=== PATIENT | male | born 1955 | race Caucasian/White ===

== ENCOUNTER 2024-01-02 04:12 | Inpatient (IN) | payer MEDICARE, OTHER, SELFPAY ==
[2024-01-01 22:33] VITALS: BP 119/69
[2024-01-01 22:48] LABS: Hematocrit 43.9 % (39.0-52.0); Mean Corp Hgb Conc. 36.4 g/dL (33.0-37.0); Mean Corpuscular Hgb 29.7 pg (27.0-31.0); Mean Corpuscular Volume 81.6 fL (80.0-94.0); Mean Platelet Volume 10.1 fL (7.4-10.4); Platelet Count 104 10^3/uL (130-400); Red Blood Cell Count 5.38 10^6/uL (4.70-6.10); White Blood Cell Count 17.3 10^3/uL (4.8-10.8)
[2024-01-01 23:03] LABS: ALT (SGPT) 26 U/L (0-50); AST (SGOT) 31 U/L (17-59); Albumin 3.6 g/dl (3.5-5.0); Alkaline Phosphatase 142 U/L (38-126); Blood Urea Nitrogen 69 mg/dl (9-20); Calcium 8.7 mg/dl (8.4-10.2); Carbon Dioxide 20 mmol/L (22-30); Chloride 101 mmol/L (98-107); Glucose 101 mg/dl (70-99); Lipase 40 U/L (23-300); Potassium 3.9 mmol/L (3.5-5.1); Sodium 130 mmol/L (135-145); Total Bilirubin 1.6 mg/dl (0.2-1.3); Total Protein 6.4 g/dl (6.3-8.2); eGFR 23.83
[2024-01-01 23:05] LABS: Absolute Neutrophils -Man Diff 16.9 10^3/uL (1.4-6.5); Band Neutrophils 15 % (0-3); Lymphocytes 1 % (20-51); Monocytes 1 % (2-9); Segmented Neutrophils 83 % (42-75)
[2024-01-01 23:06] LABS: Normal RBC Morphology Yes; Platelets Checked Yes; Total Cells Counted 100
[2024-01-01 23:20] VITALS: BP 109/69
--- NOTE | 2024-01-01 23:52 | ED.GENMED ---
History of Present Illness
<BHASKAR Myles - Last Filed: 01/02/24 01:00>
General
Chief Complaint: Abdominal Pain
Source: patient
Time Seen by Provider: 01/01/24 23:51
Travel History
Have you had any contact with someone who has COVID-19?: No
Do you have any symptoms of coronavirus? Fever > 100 degrees, chills, cough, shortness of breath, sore throat, loss of taste or smell, muscle aches, or headache?: No
History of Present Illness
History of Present Illness:
Pt is a 68 year old male presenting with diffuse abdominal pain. He states the pain started as localized left sided flank pain Saturday morning which he reports felt similar to previous kidney stones he has had. However, later Saturday he developed
diarrhea, nausea, 'shakes', and one episode of emesis. He states he diarrhea has continued, reporting 2-3 loose stools/day, and continued nausea and dry heaving. He states after he took Imodium this evening his diarrhea has not returned. He reports
he has been taking Motrin two 200 mg tablets every 6 hours since Saturday for his pain, noting his last dose was at 6 pm tonight. He reports moderate headache. He reports he has been able to keep fluids down after vomiting Saturday night. He has had no
appetite since his symptoms began, reporting a total intake of 7 crackers. Pt notes he ate 'a lot of junk' Saturday when he drove down to [place] with his son. He reports a PMHx of gallstones. He denies fever, urinary pain/burning, hematuria,
cough, SOB, sore throat, chest pain, sick contacts. He returned from [place] today due to his symptoms.
Past History
<BHASKAR Myles - Last Filed: 01/02/24 01:00>
Past History
ED Past Medical History: Other (Kidney stones)
ED Past Surgical History: Orthopedic (lower back surgery 8 years ago.) and Other (Repair of meniscus right knee )
Social History
Tobacco: Non-smoker
Alcohol: None
Drug: None
Personal:
Living: with family
Employment: Employed (due to back pain)
Family History
Family History: Other (Noncontributory)
Review of Systems
<BHASKAR yMles - Last Filed: 01/02/24 01:00>
Review of Systems
All Other Systems: Not applicable
Constitutional: Reports chills
EENT: Reports no symptoms
Respiratory: Reports no symptoms
Cardiac: Reports no symptoms
ABD/GI: Reports abdominal pain, nausea, vomiting and diarrhea
: Reports flank pain (left sided)
Musculoskeletal: Reports no symptoms
Skin: Reports no symptoms
Neurological: Reports no symptoms
Endocrine: Reports other (anorexia)
Hematologic/Lymphatic: Reports no symptoms
Psychiatric: Reports no symptoms
Phy Exam
<BHASKAR Myles - Last Filed: 01/02/24 01:00>
General Physical Exam
General Presentation: well appearing and mild distress
General age: appears stated age
General Skin: warm and dry
General Habitus: obese
General Mental: alert
General Hydration: dry mucous membranes and poor skin turgor
ENT Exam
ENT Exam: swallowing well
Eye Exam
Eye Exam: conjunctiva normal
Cardiovascular Exam
Cardiovascular Exam: regular rate/rhythm, no edema and no murmur
Pulmonary Exam
Pulmonary Exam: lungs clear, no respiratory distress, no crackles and no cough
Gastrointestinal Exam
Gastrointestinal Exam: normal bowel sounds, soft, no cva tenderness, no masses, tender and other (Positive Carlisle's sign; no CVA tenderness)
Palpation: left lower quadrant: Moderate tenderness, right upper quadrant: Moderate tenderness and generalized: Mild tenderness
Auscultation of Abdomen: normal
Neurological Exam
Neurological Exam: alert and oriented x3
Mental
Mental Status: oriented to person, oriented to place and oriented to time
Describe Speech: normal speech
Musculoskeletal Exam
Musculoskeletal Exam: no edema
Skin Exam
Skin Exam: normal color and warm/dry
Psychiatric Exam
Psychiatric Exam: normal mood/affect
Course
<Stephanie Barry [facility] - Last Filed: 01/02/24 01:00>
Orders/Labs/Results
Orders:
Orders
01/01/24 22:40
CBC/With Diff [Complete Blood Count/With Diff] Urgent
CMP [Comprehensive Metabolic Panel] Urgent
Lipase Urgent
Manual Differential Urgent
01/01/24 23:55
Urinalysis Reflex To Culture Urgent
Date Specimen was Collected: 01/01/24
Time Specimen was Collected: 23:46
Urine Microscopic Reflex Cult Urgent
Urine Culture Urgent
JEANETTE Source: U
Specimen Description:
Date Specimen was Collected: 01/01/24
Time Specimen was Collected: 23:46
01/01/24 23:56
0.9% Sodium Chloride 1000 ml [Nss] 1,000 ml IV BOLUS
01/02/24 00:31
0.9% Sodium Chloride 1000 ml [Nss] 1,000 ml IV BOLUS
01/02/24 00:34
CT Abd/pel Without Iv Or Oral Urgent
Comment:
Reason For Exam: gen upper abd pain, N/V/D x 3 days
Lactic Acid Urgent
Blood Culture Q30M
JEANETTE Source: Blood/Venous
Specimen Description:
01/02/24 00:37
Blood Culture Q30M
JEANETTE Source: Blood/Venous
Specimen Description:
01/02/24 00:48
Ondansetron Injectable [Zofran] 4 mg IV NOW STA
01/02/24 01:28
Cefepime HCl [Maxipime] 2,000 mg IV NOW STA
01/02/24 01:33
0.9% Sodium Chloride 1000 ml [Nss] 1,000 ml IV 250 mls/hr
Abnormal Lab Results
01/01/24 01/01/24
22:40 23:55
WBC 17.3 H 10^3/uL
(4.8-10.8)
Plt Count 104 L 10^3/uL
(130-400)
Abs Neuts (Manual) 16.9 H 10^3/uL
(1.4-6.5)
Segmented Neutrophils 83 H %
(42-75)
Band Neutrophils 15 H %
(0-3)
Lymphocytes (Manual) 1 L %
(20-51)
Monocytes (Manual) 1 L %
(2-9)
Sodium 130 L mmol/L
(135-145)
Carbon Dioxide 20 L mmol/L
(22-30)
BUN 69 H mg/dl
(9-20)
Creatinine 2.8 H mg/dL
(0.7-1.3)
Glucose 101 H mg/dl
(70-99)
Total Bilirubin 1.6 H mg/dl
(0.2-1.3)
Alkaline Phosphatase 142 H U/L
(38-126)
Urine Ketones Trace A
(Negative)
Ur Occult Blood Reflex 4+ A
(Negative)
Leukocyte Esterase Rfl 2+ A
(Negative)
Urine WBC (Reflex) >100 A /HPF
(0-5)
Urine Bacteria (Reflex) Many A
(Negative)
Urine Albumin (Reflex) 1+ A
(Neg - Trace)
01/01/24 22:40
01/01/24 22:40
Vital Signs
Initial and Last Documented VS:
Initial Vital Signs
Temp Pulse Resp BP Pulse Ox
98.8 F 114 18 119/69 97
01/01/24 22:33 01/01/24 22:33 01/01/24 22:33 01/01/24 22:33 01/01/24 22:33
Last Documented Vital Signs
Temp Pulse Resp BP Pulse Ox
98.9 F 98 18 109/69 96
01/01/24 23:35 01/01/24 23:30 01/01/24 23:30 01/01/24 23:20 01/01/24 23:30
<iKta Chaudhari, DO - Last Filed: 01/02/24 02:36>
Orders/Labs/Results
Orders:
Orders
01/01/24 22:40
CBC/With Diff [Complete Blood Count/With Diff] Urgent
CMP [Comprehensive Metabolic Panel] Urgent
Lipase Urgent
Manual Differential Urgent
01/01/24 23:55
Urinalysis Reflex To Culture Urgent
Date Specimen was Collected: 01/01/24
Time Specimen was Collected: 23:46
Urine Microscopic Reflex Cult Urgent
Urine Culture Urgent
JEANETTE Source: U
Specimen Description:
Date Specimen was Collected: 01/01/24
Time Specimen was Collected: 23:46
01/01/24 23:56
0.9% Sodium Chloride 1000 ml [Nss] 1,000 ml IV BOLUS
01/02/24 00:31
0.9% Sodium Chloride 1000 ml [Nss] 1,000 ml IV BOLUS
01/02/24 00:34
CT Abd/pel Without Iv Or Oral Urgent
Comment:
Reason For Exam: gen upper abd pain, N/V/D x 3 days
Lactic Acid Urgent
Blood Culture Q30M
JEANETTE Source: Blood/Venous
Specimen Description:
01/02/24 00:37
Blood Culture Q30M
JEANETTE Source: Blood/Venous
Specimen Description:
01/02/24 00:48
Ondansetron Injectable [Zofran] 4 mg IV NOW STA
01/02/24 01:28
Cefepime HCl [Maxipime] 2,000 mg IV NOW STA
01/02/24 01:33
0.9% Sodium Chloride 1000 ml [Nss] 1,000 ml IV 250 mls/hr
Abnormal Lab Results
01/01/24 01/01/24
22:40 23:55
WBC 17.3 H 10^3/uL
(4.8-10.8)
Plt Count 104 L 10^3/uL
(130-400)
Abs Neuts (Manual) 16.9 H 10^3/uL
(1.4-6.5)
Segmented Neutrophils 83 H %
(42-75)
Band Neutrophils 15 H %
(0-3)
Lymphocytes (Manual) 1 L %
(20-51)
Monocytes (Manual) 1 L %
(2-9)
Sodium 130 L mmol/L
(135-145)
Carbon Dioxide 20 L mmol/L
(22-30)
BUN 69 H mg/dl
(9-20)
Creatinine 2.8 H mg/dL
(0.7-1.3)
Glucose 101 H mg/dl
(70-99)
Total Bilirubin 1.6 H mg/dl
(0.2-1.3)
Alkaline Phosphatase 142 H U/L
(38-126)
Urine Ketones Trace A
(Negative)
Ur Occult Blood Reflex 4+ A
(Negative)
Leukocyte Esterase Rfl 2+ A
(Negative)
Urine WBC (Reflex) >100 A /HPF
(0-5)
Urine Bacteria (Reflex) Many A
(Negative)
Urine Albumin (Reflex) 1+ A
(Neg - Trace)
01/01/24 22:40
01/01/24 22:40
Vital Signs
Initial and Last Documented VS:
Initial Vital Signs
Temp Pulse Resp BP Pulse Ox
98.8 F 114 18 119/69 97
01/01/24 22:33 01/01/24 22:33 01/01/24 22:33 01/01/24 22:33 01/01/24 22:33
Last Documented Vital Signs
Temp Pulse Resp BP Pulse Ox
98.9 F 98 18 109/69 96
01/01/24 23:35 01/01/24 23:30 01/01/24 23:30 01/01/24 23:20 01/01/24 23:30
<BHASKAR Myles - Last Filed: 01/02/24 01:00>
MDM/Problems Addressed
Differential Diagnosis Includes:
acute kidney injury, nephrolithiasis, peritonitis, cholecystitis, obstructive pyelonephritis
MDM/Problems Addressed:
abdominal pain
<BHASKAR Myles - Last Filed: 01/02/24 01:00>
*Pulse Oximetry
Patient hypoxic: no
*Critical Care Note
Total Time (30-74mins, 75-104mins- exclusive of procedures): Not Applicable
<Kita Chaudhari DO - Last Filed: 01/02/24 02:36>
*Radiology
Radiology exam reviewed: radiology read reviewed
ED Attending Note
<BHASKAR Myles - Last Filed: 01/02/24 01:00>
-
Portions of this chart may have been created with voice recognition software.� Occasional wrong word or��sound alike� substitutions may have occurred due to the inherent limitations of voice recognition software.
<Kita Chaudhari DO - Last Filed: 01/02/24 02:36>
ED Attending Note
Patient seen and examined by attending physician: Yes
I performed the substantive portion of visit, reviewed & personally made and approve the management plan that is documented in note by myself or NATALIA.: Yes
I performed a history and physical exam of patient and discussed management with resident, I reviewed resident's note and agree with documented findings and plan of care.: Yes
ED Attending Note:
This is a 68-year-old gentleman with remote history of kidney stones who complains of somewhat abrupt onset of left flank pain that began the morning of December 29. Initially felt similar to previous episode of renal colic a number of years ago but
flank pain resolved later that day and symptoms progressed to nausea, vomiting, diarrhea accompanied with generalized mid to upper abdominal pain, cramping and bloating in nature. He has also had intermittent shaking chills and diaphoresis
accompanied with nausea, dry heaves.
With onset of symptoms patient had been visiting with his son in [place], had driven furniture to his son in [place] and then eventually drove back to [place], arriving this afternoon.
He has been taking ibuprofen 400 mg every 6 hours over the past 3 days with the last dose around 6 PM this evening.
He has had limited oral intake over the past 3 days, he has been attempting to drink fluids but has had limited to no solids and overall lack of appetite.
He denies dysuria and urgency nor hematuria. No chest pain or coughing or shortness of breath. No further flank nor back pain.
No close contacts with similar symptoms.
No recent antibiotic use.
He takes no medicines on a daily basis.
GENERAL: 68-year-old gentleman appears his stated age, awake and alert, moderately ill in appearance. is accompanying.
EYE: anicteric
NECK: Supple, nontender, no meningismus, no significant adenopathy.
ENT: Oral mucosa is moderately dry. No rhinorrhea.
CARDIAC: Regular rate and rhythm. no murmur.
LUNGS: Clear breath sounds bilaterally, no acute respiratory distress, no wheezes/rales/rhonchi
ABDOMEN: Rotund, soft, nondistended, moderate tenderness right upper lateral quadrant, no r/g, no cvat. normoactive BS. No palpable masses.
NEUROLOGICAL: Alert and oriented x3, no focal neuro deficits.
SKIN: Warm and dry, normal color, skin intact. No rash.
MUSCULOSKELETAL: No C/C/E. peripheral pulses are full and equal b/l. No palpable tenderness.
PSYCH: Normal and appropriate interaction.
Concern for acute renal colic on the left/ureteric stone, acute gastroenteritis, colitis, acute cholecystitis, UTI/pyelonephritis.
Although currently afebrile with history of intermittent shaking chills and diaphoresis, this is concerning for subjective fever/rigors�concern for sepsis.
Clinically appears moderately dehydrated and vital signs notable for mild tachycardia initially with currently somewhat soft blood pressure at 109/69.
Labs are remarkable for moderately elevated white blood cell count of 17.3.
Chemistries note acute kidney injury with BUN/creatinine 69/2.8; normal renal function with creatinine 1.1/BUN of 23 noted 1 year ago.
Mild hyponatremia, moderate metabolic acidosis.
Mildly elevated total bili and alkaline phosphatase are new compared to previous as well. All other LFTs within normal limits.
Preliminary urinalysis plus for blood, +2 leukocyte Estrace. Microscopic is pending.
IV fluid resuscitation has been initiated. Will give IV Zofran for nausea.
Will check lactic acid, blood and urine cultures.
Will check CT abdomen pelvis.
01/02/2024 0234 AM
CAT scan shows a 5 x 5 mm stone within the proximal left ureter with very mild hydronephrosis and mild perinephric stranding.
Lactic acid is normal.
Urinalysis concerning for UTI with many bacteria, greater than 100 WBCs.
IV fluids continue and patient has been started on cefepime IV.
Case discussed with urology. Will admit to hospitalist service. Urology plans to place a stent later this morning.
Discharge Plan
Departure
Patient Disposition: Admit
Date of Disposition: 01/02/24
Time of Disposition: 02:33
Admit to: Med/Surg
Admit to doctor: Dc
Presentation/result/management discussed w/ accepting MD/DO: Hospitalist
Condition: Serious
Discharge Problem:
Calculus of proximal left ureter, LANA (acute kidney injury), UTI r/o sepsis
Prescriptions:
Discontinued
prednisone 10 MG tablet
10 mg PO .TAPER Qty: 30 0RF
Rx Instructions:
Take 40mg daily x3days, 30mg daily x3days, 20mg daily x3days, 10mg daily x3days.
amlodipine 5 MG tablet
5 mg PO DAILY Qty: 30 0RF
hydromorphone 2 MG tablet
2 mg PO Q4HPRN PRN (Reason: severe pain) Qty: 15 0RF
docusate sodium 100 MG capsule
100 mg PO BID Qty: 60 0RF
cyclobenzaprine 10 mg tablet
10 mg PO TID PRN (Reason: Back pain/muscle spasm) Qty: 15 0RF
Referrals:
Armin Byrd PA-C [Family Provider] -
Interventions
Interventions:
*Risk Screen - Suicide Last Done: 01/01/24 22:33
*General Assessment Last Done: 01/01/24 22:33
*Neglect/Abuse Screening Last Done: 01/01/24 22:33
*ED COVID-19 Vaccine History Last Done: 01/01/24 22:36
GA-Mjhtga-Abbtuzcbif Assessment Last Done: 01/01/24 23:34
Discharge Date and Time
Print Language: SALVADOREAN
[2024-01-01] MEDS: NSS 1000 IV (23:59)
[2024-01-02] VITALS (22 sets, daily range): BP systolic 82–163; BP diastolic 60–146; BMI 31.8
[2024-01-02 00:17] LABS: Urine Albumin 1+ (Neg - Trace); Urine Bilirubin Negative (Negative); Urine Character Very Cloudy (Clear); Urine Color Yellow; Urine Glucose Negative (Negative); Urine Ketone Trace (Negative); Urine Leukocyte 2+ (Negative); Urine Nitrite Negative (Negative); Urine Occult Blood 4+ (Negative); Urine Specific Gravity 1.015 (<1.030); Urine Urobilinogen Negative (Neg - 1+)
[2024-01-02 01:22] LABS: Lactic Acid 1.2 mmol/L (0.7-2.0)
[2024-01-02 01:26] LABS: Urine Amorphous Seen; Urine Bacteria Many (Negative); Urine Granular Cast >15 /LPF (0); Urine Mucus Many; Urine Squamous Cell >30 /LPF (Few); Urine White Cell >100 /HPF (0-5)
[2024-01-02] MEDS: ZOFRAN 4 MG IV (01:48)
[2024-01-02] MEDS: MAXIPIME 2000 MG IV (03:41)
[2024-01-02] MEDS: NSS 1000 IV ×2 (03:42→03:47)
[2024-01-02] MEDS: MORPHINE SULFATE 4 MG IV (03:50)
--- NOTE | 2024-01-02 03:58 | HPS.HSE ---
Family Physician
-
Family Physician: Armin Byrd PA-C
Chief Complaint
-
Flank Pain, N/V, Chills
History of Present Illness
Patient is a 68y M with no significant PMH who presents to ED complaining of L flank pain, abdominal pain, N/V, diaphoresis and chills x several days. Patient states that his symptoms woke him from sleep around 3 AM on Saturday morning. He has
had intermittent / episodic symptoms since that time. Some loose stools. Several episodes of emesis. He thought that symptoms might be from viral illness; however, he has noted no improvement. When he had another episode this evening - he
presented to the ED for further evaluation.
Patient reports one prior instance of kidney stone > 10 years ago. He did require ureteroscopy at that time. He has had no issues since.
He takes no medications at home and has no chronic health issues.
Medical History
Past Medical History
Past Medical History: Reports Other
Additional Past Medical History:
Lumbar DDD
Nephrolithiasis
Past Surgical History: Reports Other
Additional Past Surgical History:
Appendectomy
Lumbar Fusion
Ureteroscopy / Lithotripsy
Right TKA
Social History
Tobacco: Former Smoker (Quit smoking 25 years ago. Approx 30 pack years total use.)
Alcohol: Occasional (Very rare.)
Drug: None
Family History
Family History: Other (Brother: DM Father: COPD Mother: Breast Cancer, CAD)
Allergies / Home Medications
Allergies reflects when Allergies were last updated in [facility].
Home Medications with original date entered in [facility]
Allergy/Medication List:
Allergies
Allergy/AdvReac Type Severity Reaction Status Date / Time
No Known Allergies Allergy Verified 01/01/24 22:36
Home Medications
No Meds [No Current Medications] 01/02/24
Review of Systems
-
History Source: Patient
A 12 point ROS was completed and negative except as noted: Yes
Constitutional: Reports Fatigue and Chills; Denies Fever
EENT: Denies Sore Throat
Respiratory: Denies Cough or Trouble Breathing
Cardiac: Denies Chest Pain or Palpitations
Abdomen/GI: Reports Abdominal Pain, Nausea, Vomiting and Diarrhea; Denies Constipated, Bloody Stools or Black Stools
: Reports Flank Pain; Denies Dysuria or Frequency
Musculoskeletal: Reports Muscle Pain; Denies Joint Pain or Edema
Neurological: Reports Headache; Denies Dizzy
Psych: Denies Depression or Anxiety
Physical Exam
Vital Signs
Vital Signs
Temp Pulse Resp BP Pulse Ox
98.9 F 98 18 109/69 96
01/01/24 23:35 01/01/24 23:30 01/01/24 23:30 01/01/24 23:20 01/01/24 23:30
Physical Exam
General: Other (68y M in no acute distress.)
HEENT: PERRLA and Other (Dry MM.)
Respiratory: Clear; No Wheezes, Rales or Rhonchi
Cardiac: S1/S2 and Regular Rhythm; No Murmur
GI: Soft, Non Distended, Normal Bowel Sounds and Other (Mildly / diffusely tender. No rebound / guarding.)
Genito-urinary: No costovertebral tender
Musculoskeletal: No Clubbing, No Cyanosis and No Edema
Neuro: AO x 3
Laboratory Results
-
01/01/24 22:40
01/01/24 22:40
Laboratory Results
Lactic Acid 1.2 mmol/L (0.7-2.0) 01/02/24 00:34
Total Bilirubin 1.6 mg/dl (0.2-1.3) H 01/01/24 22:40
AST 31 U/L (17-59) 01/01/24 22:40
ALT 26 U/L (0-50) 01/01/24 22:40
Alkaline Phosphatase 142 U/L (38-126) H 01/01/24 22:40
Lipase 40 U/L (23-300) 01/01/24 22:40
Impression/Plan
-
A/P: Patient is a 68y M with no significant PMH who presents to ED complaining of 3 days of flank pain, N/V/D and malaise.
Left Ureteral Stone
Left Pyelonephritis secondary to the above
Sepsis secondary to the above
- Admit for further evaluation and treatment.
- Patient presents with tachycardia, leukocytosis and UA consistent with infection.
- Life threatening organ dysfunction in the form of LANA secondary to infection and obstruction.
- IV abx with cefepime - adjust as appropriate based on culture data.
- Supportive care including IVFs, antipyretics, antiemetics, etc.
- Urology evaluation for probable ureteroscopy / stenting in the AM.
- Follow for clinical improvement.
LANA
- SCr = 2.8 compared to baseline 1.0.
- Likely secondary to sepsis +/- obstruction as noted above.
- IVF support.
- Urology eval as noted.
- Follow for return to baseline renal function.
DVT Prophylaxis: SCDs
Code Status: Full
--- NOTE | 2024-01-02 05:50 | PTCARENOTE ---
Pt admitted to room 2140 from Ed at 0545 this morning, Nss infusing at 250ml/hr. Pt aaox3, medicated for pain to L flank area. Dr. Lees in the room to update pt. and answer his questions. VSS,
[2024-01-02] MEDS: TYLENOL 650 MG PO ×2 (06:00→14:29)
--- NOTE | 2024-01-02 06:12 | W.PN.URO.CBU ---
Today's Communication / Plan
-
npo to op room
Assessment / Plan
-
sirs jluis multiple dtones nbut left porox stone with hydrpo will hydray iv abs and stenbt in op room today
Diagnosis
-
Date of Service: January 02, 2024
-
Patient Diagnosis:left ureteral stone creat 1 to 2.8 febpver chills
Post Op Day:
Subjective
-
colic no fever
Objective
-
Vital Signs
Temp Pulse Resp BP Pulse Ox
97.9 F 81 18 124/71 96
01/02/24 05:47 01/02/24 05:47 01/02/24 05:47 01/02/24 05:47 01/02/24 05:47
Review of Systems
-
Constitutional: Fever, Night Sweats and Chills
: Flank Pain
Physical Exam
-
General - well developed, well nourished, no acute distress non toxiv[=c
Chest - clear bilaterally
Abdomen - soft, non-tender, positive bowel sounds, no CVAT, no incisional pain or distention
Genitalia - normal
Rectal - normal
Skin - warm & dry with no rash
Neuro - AOx3, no motor deficits
Extremities - no clubbing, no cyanosis, no edema
Incision - clean, dry
Dressing - clean, dry, intact
Counseling
-
to op room
Care Review
Data Reviewed
Discussed with: Hospitalist and Nursing
CT Scan: Image Pers Reviewed
[2024-01-02 06:13] LABS: Hematocrit 41.1 % (39.0-52.0); Hemoglobin 14.3 g/dL (13.0-18.0); Mean Corp Hgb Conc. 34.8 g/dL (33.0-37.0); Mean Corpuscular Hgb 29.5 pg (27.0-31.0); Mean Corpuscular Volume 84.7 fL (80.0-94.0); Mean Platelet Volume 10.7 fL (7.4-10.4); Platelet Count 98 10^3/uL (130-400); Red Blood Cell Count 4.85 10^6/uL (4.70-6.10); White Blood Cell Count 19.6 10^3/uL (4.8-10.8)
[2024-01-02] MEDS: DILAUDID 0.5 MG IV ×2 (06:29→19:29)
[2024-01-02 06:45] LABS: Blood Urea Nitrogen 68 mg/dl (9-20); Calcium 7.9 mg/dl (8.4-10.2); Carbon Dioxide 19 mmol/L (22-30); Chloride 106 mmol/L (98-107); Estimated Creatinine Clearance 29 ml/min; Glucose 114 mg/dl (70-99); Potassium 4.3 mmol/L (3.5-5.1); Sodium 134 mmol/L (135-145); eGFR 23.83
[2024-01-02] MEDS: LR 1000 IV ×2 (07:40→17:34)
--- NOTE | 2024-01-02 10:34 | W.SUR.POST ---
Surgical Immediate Post Op
Note
Pre Op Diagnosis: left uretrtal stone with sepsis jluis
Post Op Diagnosis: same
Procedure Performed: cysto left uretral stone manipulation jj stent rgp
Primary Surgeon: laron
Secondary Surgeons:
Anesthesia: general
Estimated Blood Loss: 1cc
Fluids: ns
Drains/Shunts:56 fr 24 cm jj 18 fr ross
Specimens/Cultures: urine
Doppler/Duplex/Angio (Y/N):
Complications: 0
Operative Findings: multilre stones and farooq pus left renal pelvis
--- NOTE | 2024-01-02 11:30 | SUR.PHASEI ---
1120. patient started to have rigors, taccycardia, Dr gonzáles called. Roseann lira RN BSN.
--- NOTE | 2024-01-02 11:44 | W.PN.HOSP.TC ---
Today's Communication/Plan
-
transfer to ICU
consult appraiser irrigation tax
consider renal consult
cont IVF, pressors as needed
cont cefepime
cont ross
Assessment / Plan
Assessment / Plan
pt is a 68 year old male
Developing sepsis post op in PACU from obstructing Left Ureteral Stone/Left Pyelonephritis --post op day 0--transfer to ICU, consult appraiser irrigation tax--stat blood cultures, cbc, cmp, lactate--may need pressors--cont cefepime--apprec urology--had brief
acute hypoxic resp failure requiring 6L as pulse ox dropped to 88%--now improved
LANA-- due to sepsis/obstructed stone--cont ross--cont IVF--consider renal consult
DVT Prophylaxis: SCDs
Code Status: Full
Total Critical Care Time 30 minutes. I was immediately available to the patient and staff. I personally examined, reviewed labs, diagnostic images/reports, interpretations, treatment plans, discussed patient care with other providers and family
or caregivers (if patient is unable to make decisions), entered orders as appropriate and documented the medical record.
Anticipated Discharge: > 48 hours
Subjective/Interval History
-
Date of Service: January 02, 2024
called to see patient in PACU for rigors, tachycardia, fever
Objective Data
-
Labs:
Laboratory Results
01/02/24
05:51
WBC 19.6 H
Hgb 14.3
Hct 41.1
Plt Count 98 L
Sodium 134 L
Potassium 4.3
Chloride 106
Carbon Dioxide 19 L
BUN 68 H
Creatinine 2.8 H
Glucose 114 H
Calcium 7.9 L
Vital Signs:
was max temp until NOW 101.1
01/01/24
23:35
Temp 98.9 F
Vital Signs
Temp Pulse Resp BP Pulse Ox
98.6 F 124 20 130/72 100
01/02/24 11:30 01/02/24 11:32 01/02/24 11:32 01/02/24 11:32 01/02/24 11:32
I&O
01/01/24 01/02/24 01/03/24
06:59 06:59 06:59
Intake Total 163 / 163
Balance 163 / 163
Review of Systems
-
All other systems: Reviewed and negative
Physical Exam
-
General: Well Developed, Well Nourished, Appears in Distress and Chills (rigors)
HEENT: Normocephalic, Atraumatic and Oxygen
Respiratory: Clear to Auscultation; Negative Wheezes, Rales, Rhonchi or Crackles
Cardiac: Regular Rhythm and S1/S2; Negative Murmur
GI: Soft, Nontender, Nondistended and Normal Bowel Sounds
Musculoskeletal: No Clubbing, No Cyanosis and No Edema
Neuro: Awake and Alert
--- NOTE | 2024-01-02 12:07 | TRANSFER ---
Patient transferred to ICU, patient feeling better, rigors gone, heart rate now 100bpm, BP stable. Report to Maritza , phone and bedside. Patient will contact his . 1st set of blood cultures and labs drawn in PACU. IV fluids at 150 mls per hr. E
Nabor Craven RN BSN.
[2024-01-02 12:16] LABS: % Basophils 0.9 % (0-2); % Eosinophils 0.3 % (0-6); % Immature Granulocytes 0.5 % (0-0.5); % Lymphocytes 2.1 % (20.5-51.1); % Monocytes 1.4 % (1.7-9.3); % Neutrophils 94.8 % (42.2-75.2); Absolute Basophils 0.1 10^3/uL (0-0.2); Absolute Immature Granulocytes 0.1 10^3/uL (0-0.05); Absolute Lymphocytes 0.2 10^3/uL (1.2-3.4); Absolute Monocytes 0.1 10^3/uL (0.1-0.6); Absolute Neutrophils 9.3 10^3/uL (1.4-6.5); Hematocrit 42.7 % (39.0-52.0); Hemoglobin 14.9 g/dL (13.0-18.0); Mean Corp Hgb Conc. 34.9 g/dL (33.0-37.0); Mean Corpuscular Hgb 29.7 pg (27.0-31.0); Mean Corpuscular Volume 85.1 fL (80.0-94.0); Mean Platelet Volume 10.3 fL (7.4-10.4); Nucleated Red Blood Cells % 0 % (-); Platelet Count 80 10^3/uL (130-400); Red Blood Cell Count 5.02 10^6/uL (4.70-6.10); Red Cell Dist. Width 14.4 % (11.5-14.5); White Blood Cell Count 9.8 10^3/uL (4.8-10.8)
[2024-01-02 12:25] LABS: Lactic Acid 2.1 mmol/L (0.7-2.0)
[2024-01-02 12:28] LABS: ALT (SGPT) 23 U/L (0-50); AST (SGOT) 27 U/L (17-59); Albumin 3.2 g/dl (3.5-5.0); Alkaline Phosphatase 108 U/L (38-126); Blood Urea Nitrogen 65 mg/dl (9-20); Carbon Dioxide 20 mmol/L (22-30); Chloride 106 mmol/L (98-107); Estimated Creatinine Clearance 30 ml/min; Glucose 98 mg/dl (70-99); Potassium 4.2 mmol/L (3.5-5.1); Sodium 135 mmol/L (135-145); Total Bilirubin 1.7 mg/dl (0.2-1.3); Total Protein 5.9 g/dl (6.3-8.2); eGFR 24.89
--- NOTE | 2024-01-02 12:42 | CON.INTV ---
Consultation
Consultation Request
Date/Time Consultation Requested: 01/02/2024 - 1234
Date/Time Consultation Performed: 01/02/2024 - 1245
Requesting Provider: Dr. Foster
Performing Provider: Dr. Arzola
Reason for Consultation: Sepsis with tachycardia
Medical History
-
Chief Complaint: Left-sided flank pain, chills and nausea
History of Present Illness:
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 Patient says that he went to [place] on Saturday to visit
his son who was in the and Saturday night/Saturday morning he started to feel terrible with shaking chills, nausea, and left-sided flank pain. He thought it was just a viral illness so he tried to tough it out but his symptoms did not go away
so he came into the ER on 01/01/2024. In the ER he was afebrile to 98.9 �F, heart rate 87, respiratory rate 20 breaths/min, BP 120/83 and he was saturating 92% on room air. Labs showed hyponatremia to 130, LANA with creatinine 2.8, BUN elevated at
69, metabolic acidosis with serum bicarbonate at 20, elevated total bilirubin at 1.6, and leukocytosis to 17.3 with 15% bands. He also was thrombocytopenic to 104. Urinalysis showed 2+ leukocyte esterase with >[address] A/P without
contrast showed a 5 mm calculus in the proximal left ureter with mild left renal collecting system dilatation and mild bilateral perinephric stranding (L >R). Patient given Zofran, morphine, cefepime and IV fluids with NS 0.9% x 3L total. He was
initially admitted to the hospitalist service on telemetry with urology consulted. Today (01/02/2024), patient underwent cystoscopy with left ureteral stone manipulation with JJ stent placement and postoperatively patient was tachycardic with
concerns for worsening sepsis. Patient now being transferred to the ICU for further care and the critical care services consulted for additional management/recommendations.
When I saw the patient he was in bed, in no acute distress saying he feels hungry and overall feels much better than when he first came into the hospital. He still feels tenderness on his left flank but it is improved. Ross is in place which was
inserted in the OR. Currently vitals are: Heart rate 96, BP 125/74, SpO2: 95% on 6 L/min nasal cannula. He denies any chest pain, headache, shortness of breath, abdominal pain, fevers or chills.
PMHx: Lumbar DDD; nephrolithiasis, former tobacco use disorder, chronic back pain, deviated septum, impaired vision
PSHx: Appendectomy, lumbar fusion, ureteroscopy/lithotripsy, right TKA
Past Medical History
Past Medical History: Other (Above as per HPI)
Past Surgical History: Other (Above as per HPI)
Social History
Tobacco: Former Smoker ([id number] history, quit 25 years ago)
Alcohol: Other (Rarely)
Drug: None
Family History
Family History: CAD (Mother), Cancer (Mother: Breast cancer), Diabetes (Brother) and Other (Father: COPD)
Allergies / Home Medications
Allergies
Allergy/AdvReac Type Severity Reaction Status Date / Time
No Known Allergies Allergy Verified 01/01/24 22:36
Home Medications
�Medication �Instructions �Recorded �Confirmed �Last Taken �Type
No Meds [No Current Medications] 01/02/24 01/02/24 Unknown History
Review of Systems
-
History Source: Patient
All other systems: Negative unless noted (12 point ROS performed and is negative unless mentioned above.)
Vitals / Labs / Diagnostic Testing
Vital Signs
Temp Pulse Resp BP Pulse Ox
98.3 F 72 18 117/78 99
01/02/24 15:26 01/02/24 17:30 01/02/24 17:30 01/02/24 17:00 03/28/24 18:24
Lab Data
01/02/24 11:50
01/02/24 11:50
Microbiology
01/02/24 00:37 Blood/Venous Blood Culture - Preliminary
Escherichia coli
01/02/24 00:37 Blood/Venous Gram Stain - Final
01/02/24 00:34 Blood/Venous Blood Culture - Preliminary
Positive culture in progress
01/02/24 00:34 Blood/Venous Gram Stain - Final
Diagnostic Testing:
Physical Exam
-
HEENT: Normocephalic and Anicteric
Cardiovascular: S1/S2 and Peripheral Edema (negative)
Respiratory: Clear, Wheeze (negative), Rales (negative), Rhonchi (negative) and Non-Labored Respirations
GI: Soft, Non Distended, Non Tender and Other (Abdominal obesity)
Neurology: AO x 3 and Tremors (negative)
Skin: Warm and Dry
General: Comfortable and Chills (negative)
Assessment
-
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 Labs showed LANA with hyponatremia, metabolic
acidosis and leukocytosis with bandemia. Urinalysis shows evidence of UTI and CT abdomen/pelvis shows a 5 mm calculus in the proximal left ureter with high-grade obstruction. IV fluids, antibiotics and antiemetics were started, patient was
admitted to the hospitalist service and urology performed cystoscopy with stone manipulation and JJ stent placement on 12/25/2023. Postoperatively patient became tachycardic with concern for worsening sepsis, hence patient was transferred to the ICU
for further care. Critical care services consulted for additional management/recommendations.
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
Impression:
#Left proximal ureteral stone with high-grade obstruction s/p cystoscopy with left ureteral stone manipulation and JJ stent placement (POD #0)
#Sepsis without shock due to stone related pyelonephritis
#Lactic acidosis due to above
#Pyelonephritis due to left-sided ureteral stone
#E. coli bacteremia due to above
#Thrombocytopenia due to sepsis
#Acute kidney injury due to postobstructive acidemia in the setting of left proximal ureteral stone (baseline Cr approx 0.8-1)
#Hyperbilirubinemia
#Former tobacco use disorder
#Obesity
Plan:
- Continue Abx with cefepime and follow up blood and urine Cx
- Admission blood Cx already growing E. coli - follow up sensitivities
- Continue IVF with LR at 150mL/hr
- Keep MAP>65; he may need vasopressors
- Patient hungry and tolerating regular diet --> can stop IVF tomorrow
- Renally dose all meds/Abx and trend sCr and UOP
- Maintain ross for now for accurate I/O given LANA and will hopefully be able to remove over next 1-2 days
- Trend platelet count and transfuse if needed to keep plt>20k; if bleeding occurs then keep >50k; transfuse Hb to keep >7g/dL
- Trend lactate until <2mmol/L
- trend T. bili
- Goal BG 140-180mg/dL
- Replete electrolytes with K>4, Mg>2
- stress ulcer ppx: n/a
- DVT ppx: start HSQ
Given patient's urological procedure with suspected transient bacteremia with tachycardia postoperatively and high risk for septic shock, continue hourly vital signs with close monitoring.
Total time spent today was 75 minutes for this encounter. Time includes reviewing laboratory test/imaging results, reviewing pertinent medical records, obtaining and reviewing medical history, performing an appropriate exam, ordering medications,
tests and procedures. Time also includes documentation of this encounter, coordinating patient care and communicating with other healthcare professionals. Total time does not include separately billed tests performed on this date of service.
Data:
CT Abd/Pelvis without contrast 3-2024:
Approximate 5 mm calculus in the proximal left ureter with mild left renal collecting system dilatation. Mild bilateral perinephric stranding, left greater than right.
Small bilateral nonobstructing renal calculi.
Subcentimeter hepatic hypodensity, too small to characterize.
Two subcentimeter low-attenuation left renal lesions most likely representing cysts.
Colonic diverticulosis.
Prior lumbar spine surgery with prominent beam hardening artifact.
--- NOTE | 2024-01-02 13:38 | CM ---
CM attempted to visit patient who was in OR/PACU. CM will attempt to visit again for assessment of discharge needs.
--- NOTE | 2024-01-02 14:18 | PTCARENOTE ---
Pt arrived to ICU post L ureterostomy stent at approx 1210 for sepsis. Report received from RR. Complete assessment done. Pt awake and alert. oriented x3. BUCIO. IVF infusing LR @ 150 ml/hr. HR SR, BP stable 116/73. Temp 98.1 orally on arrival. O2
abl=786% on 6l nc, will wean down, keeping sat +> 94%
--- NOTE | 2024-01-02 14:25 | PTCARENOTE ---
Preliminary BC's results showing gram neg bacilli called to Dr Foster. Another set on BC's drawn and sent to lab. Pt cleared to eat reg diet and ordered. Pt with sl L side/flank, ' ross tube' discomfort, tylllenol 650 mg given. Mod amt naima
urine with sl sediment draining from ross cath.
[2024-01-02] MEDS: MAXIPIME 1000 MG IV (17:00)
[2024-01-02] MEDS: STERILE WATER FOR INJECTION 10 ML IV (17:00)
--- NOTE | 2024-01-02 18:45 | PTCARENOTE ---
Some dried blood noted around ross cath insertion site/tube. Ross cath care done and ross adaptive hong removed and moved closer to inner upper leg. Ross cont's to drain mod to large amts of yellow urine with sediment. O2 weaned down to 2l nc,
O2 sat=97%.
--- NOTE | 2024-01-02 23:52 | PTCARENOTE ---
Pt alert oriented at this time,physical assessment preformed,pt moves easily in bed.VS stable afebrile,SR cardiac exercise specialist.O2 sats 98% on 2lnc.Pt denies pain,pleasant.Hernadez intact draining clear yellow urine,close observation ongoing throughout the
night.
[2024-01-03] VITALS (14 sets, daily range): BP systolic 100–150; BP diastolic 67–86; BMI 33.2
[2024-01-03] LABS: Lactic Acid 1.4 mmol/L (0.7-2.0); Magnesium 2.7 mg/dl (1.6-2.3); Phosphorus 3.5 mg/dl (2.5-4.5)
[2024-01-03] MEDS: HEPARIN 5000 UNITS SC ×4 (00:21→22:39)
[2024-01-03] MEDS: LR 1000 IV ×2 (00:23→07:35)
[2024-01-03] MEDS: STERILE WATER FOR INJECTION 10 ML IV ×2 (04:13→16:05)
[2024-01-03] MEDS: MAXIPIME 1000 MG IV ×2 (04:13→16:05)
[2024-01-03 04:39] LABS: % Basophils 0.7 % (0-2); % Eosinophils 0.1 % (0-6); % Immature Granulocytes 1.3 % (0-0.5); % Lymphocytes 4.4 % (20.5-51.1); % Monocytes 6.4 % (1.7-9.3); % Neutrophils 87.1 % (42.2-75.2); Absolute Basophils 0.1 10^3/uL (0-0.2); Absolute Immature Granulocytes 0.2 10^3/uL (0-0.05); Absolute Lymphocytes 0.7 10^3/uL (1.2-3.4); Absolute Neutrophils 13.1 10^3/uL (1.4-6.5); Hematocrit 38.4 % (39.0-52.0); Hemoglobin 13.4 g/dL (13.0-18.0); Mean Corp Hgb Conc. 34.9 g/dL (33.0-37.0); Mean Corpuscular Hgb 29.6 pg (27.0-31.0); Nucleated Red Blood Cells % 0 % (-); Platelet Count 78 10^3/uL (130-400); Red Blood Cell Count 4.52 10^6/uL (4.70-6.10); Red Cell Dist. Width 14.2 % (11.5-14.5); White Blood Cell Count 15.1 10^3/uL (4.8-10.8)
[2024-01-03 05:25] LABS: ALT (SGPT) 23 U/L (0-50); AST (SGOT) 24 U/L (17-59); Albumin 2.8 g/dl (3.5-5.0); Alkaline Phosphatase 109 U/L (38-126); Blood Urea Nitrogen 58 mg/dl (9-20); Carbon Dioxide 21 mmol/L (22-30); Chloride 103 mmol/L (98-107); Estimated Creatinine Clearance 51 ml/min; Glucose 172 mg/dl (70-99); Magnesium 2.6 mg/dl (1.6-2.3); Phosphorus 3.2 mg/dl (2.5-4.5); Potassium 4.5 mmol/L (3.5-5.1); Sodium 132 mmol/L (135-145); Total Bilirubin 0.7 mg/dl (0.2-1.3); Total Protein 5.4 g/dl (6.3-8.2); eGFR 46.64
--- NOTE | 2024-01-03 07:15 | PTCARENOTE ---
received patient from fast food shift lead. Patient AAOx4. SR on monitor, 99% on 2L, asked to take off nasal cannula. Patient has ordered breakfast, regular diet. Hernadez draining yellow urine, some sediment noted. No pressure requirements overnight,
normotensive, normothermic. will review orders for possible downgrade.
--- NOTE | 2024-01-03 09:10 | W.PN.INTV ---
Today's Communication / Plan
Recommendations
Continue antibiotics
Follow-up blood/urine culture sensitivities
Up OOB as tolerated
Encourage incentive spirometer
Outpatient follow-up with Urology
Patient stable for transfer out of ICU to telemetry. Cold Roll Inspector/Pulmonary service will now sign off.� Please re-consult if there are any additional questions/concerns, or if patient's respiratory status deteriorates.
Assessment
-
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 Labs showed LANA with hyponatremia, metabolic
acidosis and leukocytosis with bandemia. Urinalysis shows evidence of UTI and CT abdomen/pelvis shows a 5 mm calculus in the proximal left ureter with high-grade obstruction. IV fluids, antibiotics and antiemetics were started, patient was
admitted to the hospitalist service and urology performed cystoscopy with stone manipulation and JJ stent placement on 12/25/2023. Postoperatively patient became tachycardic with concern for worsening sepsis, hence patient was transferred to the ICU
for further care. Critical care services consulted for additional management/recommendations.
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
Impression:
#Left proximal ureteral stone with high-grade obstruction s/p cystoscopy with left ureteral stone manipulation and JJ stent placement (POD #1)
#Sepsis without shock due to stone related pyelonephritis
#Lactic acidosis due to above - resolved
#Pyelonephritis due to left-sided ureteral stone
#E. coli bacteremia due to above
#Thrombocytopenia due to sepsis - TCP is stable
#Acute kidney injury due to postobstructive acidemia in the setting of left proximal ureteral stone (baseline Cr approx 0.8-1) - LANA improving
#Hyperbilirubinemia - resolved
#Former tobacco use disorder
#Obesity
Plan:
- Continue Abx with cefepime - blood cultures from 01/01 and urine culture from 12/24; growing E. coli � follow-up sensitivities
- Stop IV fluids as patient tolerating p.o. diet
- Keep MAP>65; no need for vasopressors
- Renally dose all meds/Abx and trend sCr and UOP
- Remove Hernadez
- Trend platelet count and transfuse if needed to keep plt>20k; if bleeding occurs then keep >50k; transfuse Hb to keep >7g/dL
- Goal BG 140-180mg/dL
- Replete electrolytes with K>4, Mg>2
- stress ulcer ppx: n/a
- DVT ppx: HSQ
Dispo:� Patient stable for TRX out of ICU to telemetry. Cold Roll Inspector/Pulmonary service will now sign off.� Thank you for allowing us to be involved in the care of this patient.� Please re-consult if there are any additional questions/concerns, or if
patient's respiratory status deteriorates.
Total time spent today was 28 minutes for this encounter. Time includes reviewing laboratory test/imaging results, reviewing pertinent medical records, obtaining and reviewing medical history, performing an appropriate exam, ordering medications,
tests and procedures. Time also includes documentation of this encounter, coordinating patient care and communicating with other healthcare professionals. Total time does not include separately billed tests performed on this date of service.
Data:
CT Abd/Pelvis without contrast 01-02-2024:
Approximate 5 mm calculus in the proximal left ureter with mild left renal collecting system dilatation. Mild bilateral perinephric stranding, left greater than right.
Small bilateral nonobstructing renal calculi.
Subcentimeter hepatic hypodensity, too small to characterize.
Two subcentimeter low-attenuation left renal lesions most likely representing cysts.
Colonic diverticulosis.
Prior lumbar spine surgery with prominent beam hardening artifact.
Subjective Dataa
Subjective Data
Date of Service:
Date of Service: January 03, 2024
Chief Complaint: Cold Roll Inspector Follow Up
Subjective:
Patient seen and evaluated this morning. He is doing well. Still has some mild left-sided flank pain but otherwise feels much better. Denies headache, chest pain, shortness of breath, fever or chills.
Review of Systems
General: Other (Negative unless mentioned above)
Objective Data
Data Reviewed
Vital Signs / I&O / Oxygen:
Vital Signs
Temp Pulse Resp BP Pulse Ox
98.5 F 65 18 140/84 99
01/03/24 10:53 01/03/24 10:53 01/03/24 10:53 01/03/24 10:53 01/03/24 10:53
Intake and Output
01/02/24 01/03/24 01/04/24
06:59 06:59 06:59
Intake Total 2788 / 2863 225 / 225
Output Total 3860 / 3860 550 / 550
Balance -1072 / -997 -325 / -325
SaO2 99
Nasal Cannula flow liters per 2
minute
Physical Exam
General: Comfortable
HEENT: Normocephalic and Anicteric
Cardiovascular: S1-S2 and Peripheral Edema (negative)
Respiratory: Clear, Wheeze (negative), Crackles (negative), Rhonchi (negative) and Non-Labored Respirations
GI: Soft, Non Distended, Non Tender and Normal Bowel Sounds
Neurology: AO x 3
Skin: Warm and Dry
Labs/Micro/Reports
Lab Data
01/03/24 04:26
01/03/24 04:26
Microbiology
01/02/24 14:10 Blood/Venous Blood Culture - Preliminary
No Growth in 24 hours- Final report to follow
01/02/24 11:50 Blood/Venous Blood Culture - Preliminary
No Growth in 24 hours- Final report to follow
01/02/24 10:28 Urine Urine Culture - Preliminary
NO GROWTH
01/01/24 23:55 Urine Urine Culture - Preliminary
Escherichia coli
01/02/24 00:37 Blood/Venous Blood Culture - Preliminary
Escherichia coli
01/02/24 00:37 Blood/Venous Gram Stain - Final
01/02/24 00:34 Blood/Venous Blood Culture - Preliminary
Escherichia coli
01/02/24 00:34 Blood/Venous Gram Stain - Final
--- NOTE | 2024-01-03 09:21 | CM ---
Patient seen at bedside with his in a one story home. Patient has no DME at home and no past needs for VN or SNF. Patient states that he has sold his home and they have to be out 01/09/24. they are planning to go to an air bnb until he is well
enough to continue travels in [facility]. Patient PCP is from [facility] and he uses the [facility] in [place]. Patient was independent of ADL's and IADL's prior to admission. Patient plan is home with no needs. CM will continue to follow for
discharge planning needs.
Plan; home with no needs vs home with VN.
--- NOTE | 2024-01-03 09:24 | W.PN.HOSP.TC ---
Today's Communication/Plan
-
transfer to tele
follow blood cultures
d/c ross
cont cefepime
Assessment / Plan
Assessment / Plan
pt is a 68 year old male
E. 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 coli--repeat blood cultures pending--never needed pressors--cont
cefepime--apprec urology--had brief acute hypoxic resp failure requiring 6L as pulse ox dropped to 88%--now improved--off O2
LANA-- due to sepsis/obstructed stone--improving but not at baseline yet--d/c ross--stop IVF
DVT Prophylaxis: SCDs
Code Status: Full
Anticipated Discharge: > 48 hours
Subjective/Interval History
-
Date of Service: January 03, 2024
pt wants ross out--Ok with urology
Objective Data
-
Labs:
Laboratory Results
01/03/24
04:26
WBC 15.1 H
Hgb 13.4
Hct 38.4 L
Plt Count 78 L
Sodium 132 L
Potassium 4.5
Chloride 103
Carbon Dioxide 21 L
BUN 58 H
Creatinine 1.6 H
Glucose 172 H
Calcium 8.0 L
Total Bilirubin 0.7 D
AST 24
ALT 23
Alkaline Phosphatase 109
Vital Signs:
max temp for 24 houors
01/02/24
11:45
Temp 101.1 F H
Vital Signs
Temp Pulse Resp BP Pulse Ox
98.0 F 70 25 113/71 96
01/03/24 07:57 01/03/24 09:04 01/03/24 09:04 01/03/24 09:04 01/03/24 09:14
I&O
01/02/24 01/03/24 01/04/24
06:59 06:59 06:59
Intake Total 7728 / 2863 225 / 225
Output Total 3860 / 3860
Balance -1072 / -997 225 / 225
Review of Systems
-
All other systems: Reviewed and negative
Physical Exam
-
General: Well Developed, Well Nourished and No Apparent Distress
HEENT: Normocephalic and Atraumatic
Respiratory: Clear to Auscultation; Negative Wheezes or Rhonchi
Cardiac: Regular Rhythm and S1/S2; Negative Murmur
GI: Soft, Nontender, Nondistended and Normal Bowel Sounds
Genito-urinary: Clear Urine and Ross
Musculoskeletal: No Clubbing, No Cyanosis and No Edema
Neuro: Awake
--- NOTE | 2024-01-03 09:46 | W.PN.URO.CBU ---
Today's Communication / Plan
-
stabilizing remove ross outpoatient tx of stones
Assessment / Plan
-
sirs jluis multiple stone sepsis resolving await cxs but dcreatinine 1.6 may remove ross
Diagnosis
-
Date of Service: January 03, 2024
-
Patient Diagnosis:
Post Op Day:
Patient Diagnosis:left ureteral stone creat 1 to 2.8 febpver chills posgt op sepsis
Post Op Day:
Subjective
-
feels better not liking ross though
Objective
-
Vital Signs
Temp Pulse Resp BP Pulse Ox
98.0 F 70 25 113/71 96
01/03/24 07:57 01/03/24 09:04 01/03/24 09:04 01/03/24 09:04 01/03/24 09:14
Intake and Output
01/02/24 01/03/24 01/04/24
06:59 06:59 06:59
Intake Total 2788 / 2863 225 / 225
Output Total 3860 / 3860
Balance -1072 / -997 225 / 225
Intake:
Oral fluids 543 / 543
IV fluids (Total) 2235 / 2310 225 / 225
Lr 1,000 ml @ 75 mls/hr IV . 1685 / 1760 225 / 225
[id number] DEVORAH Rx#:[id number]
norm 250 / 250
IV piggybacks 10 / 10
Output:
Urine, Ross 3800 / 3800
Urine, Voided 60 / 60
Other:
Number of approximated MODERATE 1
amounts of urine
Laboratory Results
01/03/24 04:26
01/03/24 04:26
Review of Systems
-
: Difficulty Voiding
Physical Exam
-
General - well developed, well nourished, no acute distress
Chest - clear bilaterally
Abdomen - soft, non-tender, positive bowel sounds, no CVAT, no incisional pain or distention
Genitalia - normal
Rectal - normal
Skin - warm & dry with no rash
Neuro - AOx3, no motor deficits
Extremities - no clubbing, no cyanosis, no edema
Incision - clean, dry
Dressing - clean, dry, intact
Care Review
Data Reviewed
Discussed with: Hospitalist and Nursing
--- NOTE | 2024-01-03 09:57 | PN.CDI ---
CDI
- -
CDI:
Physician Documentation Request
Admit Date: 01/02/24 04:12
Dear Doctor Kristin,
Please review the following and provide your response in the progress notes.
Clinical Indicators:
H+P, 12/31
#Sepsis secondary to the above
#- Patient presents with tachycardia, leukocytosis and UA consistent with infection.
#- Life threatening organ dysfunction in the form of LANA secondary to
#...infection and obstruction.
PN, 01/02
#E. 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 coli--repeat blood cultures pending--never needed pressors--...
#LANA-- due to sepsis/obstructed stone--improving
#...but not at baseline yet--d/c ross--stop IVF
Please clarify which of the following most accurately describes the status of the patient's infection:
Severe sepsis, with LANA
Sepsis only
Other
Sepsis
- Systemic manifestations of infection, with 2 or more SIRS criteria which include:
- Fever >100.4 degrees F or hypothermia < 96.8 degrees F
- Leukocytosis - WBC > 12,000 or leukopenia - WBC < 4,000 or > 10% bands
- Tachycardia > 90 beats per minute
- Tachypnea - RR > 20 breaths per minute or PaCO2 , 32mmHg
Source: Merck Manual 2013
Severe Sepsis
- Sepsis with associated acute organ dysfunction, such as renal or respiratory failure
- Documentation should indicate the association between the sepsis and the organ dysfunction
Use of terms such as suspected, likely, concern for, or probable (associated with a specific diagnosis that is being evaluated, monitored, or treated as if it exists) are acceptable and can be coded in the inpatient setting, when documented at the
time of discharge.
Thank you,
Nadia Laureano RN BSN CCDS
CDI Specialist
please contact via tiger text
Please use your independent medical judgment in providing your response.
--- NOTE | 2024-01-03 10:15 | PTCARENOTE ---
Patient written for tele. Pulled ross, applied tele pack
--- NOTE | 2024-01-03 10:40 | PTCARENOTE ---
Patient transferred to [facility], all belongings packed up, transported in wheelchair on tele pack. RN to RN report given.
--- NOTE | 2024-01-03 11:10 | PTCARENOTE ---
1043- Pt received from ICU via wheelchair. Pt ambulated to bed with steady gait. Personal items and call light within reach. Pt oriented to staff and environment.
[2024-01-03] MEDS: DILAUDID 0.5 MG IV (22:40)
[2024-01-03] MEDS: TYLENOL 650 MG PO (22:41)
--- NOTE | 2024-01-03 23:00 | PTCARENOTE ---
Patient complaining of left sided flank pain 8-9/10 in severity, and headache pain 3/10, requesting pain medication at this time. Provided patient with Tylenol and PRN Dilaudid -- good relief from administration of medication, patient able to sleep
at this time. Call rahman within reach, will monitor.
[2024-01-04 03:09] VITALS: BP 102/59
[2024-01-04] MEDS: FLUSH (NSS) 2 FLUSH IV (04:08)
[2024-01-04] MEDS: STERILE WATER FOR INJECTION 10 ML IV ×2 (04:08→16:45)
[2024-01-04] MEDS: MAXIPIME 1000 MG IV ×2 (04:08→16:45)
[2024-01-04 06:00] VITALS: BMI 33.2
[2024-01-04 07:30] VITALS: BP 161/89
[2024-01-04] MEDS: DILAUDID 0.5 MG IV ×2 (07:48→21:37)
[2024-01-04 07:55] LABS: Hemoglobin 14.5 g/dL (13.0-18.0); Mean Corp Hgb Conc. 34.5 g/dL (33.0-37.0); Mean Corpuscular Hgb 29.2 pg (27.0-31.0); Mean Corpuscular Volume 84.7 fL (80.0-94.0); Mean Platelet Volume 10.6 fL (7.4-10.4); Platelet Count 93 10^3/uL (130-400); Red Blood Cell Count 4.96 10^6/uL (4.70-6.10); Red Cell Dist. Width 14.6 % (11.5-14.5); White Blood Cell Count 14.4 10^3/uL (4.8-10.8)
[2024-01-04 08:10] LABS: ALT (SGPT) 35 U/L (0-50); AST (SGOT) 32 U/L (17-59); Albumin 3.2 g/dl (3.5-5.0); Alkaline Phosphatase 127 U/L (38-126); Blood Urea Nitrogen 53 mg/dl (9-20); Calcium 8.6 mg/dl (8.4-10.2); Carbon Dioxide 23 mmol/L (22-30); Chloride 106 mmol/L (98-107); Estimated Creatinine Clearance 64 ml/min; Glucose 121 mg/dl (70-99); Magnesium 2.4 mg/dl (1.6-2.3); Sodium 133 mmol/L (135-145); Total Protein 5.9 g/dl (6.3-8.2); eGFR 59.84
[2024-01-04] MEDS: HEPARIN 5000 UNITS SC ×2 (08:39→16:45)
[2024-01-04] MEDS: ZOFRAN 4 MG IV ×2 (08:40→21:43)
[2024-01-04] MEDS: TORADOL 15 MG IV (10:30)
--- NOTE | 2024-01-04 11:37 | W.PN.HOSP.TC ---
Today's Communication/Plan
-
cont IV abx today--likely d/c tomorrow on orals to c/o 14 day total course
Assessment / Plan
Assessment / Plan
pt is a 68 year old male
E. coli severe sepsis (POA) with LANA post op in PACU from obstructing Left Ureteral Stone/Left Pyelonephritis --post op day 2--apprec urology--blood cultures on admission positive for E. coli--repeat blood cultures negtive--never needed
pressors--cont cefepime--apprec urology--had brief acute hypoxic resp failure requiring 6L as pulse ox dropped to 88%--now improved--off O2--passed stone, likely needs to send for analysis
LANA-- due to sepsis/obstructed stone--improving but not at baseline yet--d/c ross--stop IVF
DVT Prophylaxis: SCDs
Code Status: Full
Anticipated Discharge: Within 24 hours
Subjective/Interval History
-
Date of Service: January 04, 2024
pt feeling better after toradol, passed his stone
Objective Data
-
Labs:
Laboratory Results
01/04/24
07:13
WBC 14.4 H
Hgb 14.5
Hct 42.0
Plt Count 93 L
Sodium 133 L
Potassium 4.0
Chloride 106
Carbon Dioxide 23
BUN 53 H
Creatinine 1.3
Glucose 121 H
Calcium 8.6
Total Bilirubin 1.0
AST 32
ALT 35
Alkaline Phosphatase 127 H
Vital Signs:
max temp for 24 hours
01/03/24
23:21
Temp 98.8 F
Vital Signs
Temp Pulse Resp BP Pulse Ox
98.6 F 69 18 161/89 96
01/04/24 07:30 01/04/24 07:30 01/04/24 07:30 01/04/24 07:30 01/04/24 07:30
I&O
01/03/24 01/04/24 01/05/24
06:59 06:59 06:59
Intake Total 2788 / 2863 1725 / 1725
Output Total 3860 / 3860 2625 / 2625
Balance -1072 / -997 -900 / -900
Review of Systems
-
All other systems: Reviewed and negative
Physical Exam
-
General: Well Developed, Well Nourished and No Apparent Distress
HEENT: Normocephalic and Atraumatic
Respiratory: Clear to Auscultation; Negative Wheezes or Rhonchi
Cardiac: Regular Rhythm and S1/S2; Negative Murmur
GI: Soft, Nontender, Nondistended and Normal Bowel Sounds
Musculoskeletal: No Clubbing, No Cyanosis and No Edema
Neuro: Awake
[2024-01-04 11:50] VITALS: BP 138/77
[2024-01-04 15:45] VITALS: BP 140/84
[2024-01-04] MEDS: FLUSH (NSS) 1 FLUSH IV ×2 (21:38→21:44)
[2024-01-04 23:35] VITALS: BP 125/76
[2024-01-05] MEDS: HEPARIN 5000 UNITS SC ×2 (00:51→07:32)
[2024-01-05] MEDS: STERILE WATER FOR INJECTION 10 ML IV (04:30)
[2024-01-05] MEDS: MAXIPIME 1000 MG IV (04:31)
--- NOTE | 2024-01-05 05:11 | PTCARENOTE ---
Patient is expressing concern that if he is considered for discharge home today, that he will not be able to control his left side flank pain with only Motrin or Tylenol as suggested by physician. Patient reported great relief with his one time dose
of Toradol yesterday, and he states that the pain control lasted a long time with that dose. Patient c/o 10/10 pain this evening, visibly uncomfortable and restless at this time. Provided patient with PRN dose Dilaudid, patient reports good relief
at this time. He is inquiring about being sent home with something a little stronger for pain control, as he is worried that if he goes home with nothing but Tylenol and Motrin that he will end up back in the ED for the pain. Will discuss with
dayshift team, will monitor.
[2024-01-05 06:00] VITALS: BMI 33.4
[2024-01-05 07:30] VITALS: BP 147/81
--- NOTE | 2024-01-05 11:02 | W.PN.HOSP.TC ---
Today's Communication/Plan
-
d/c
Assessment / Plan
Assessment / Plan
pt is a 68 year old male
E. coli severe sepsis (POA) with LANA post op in PACU from obstructing Left Ureteral Stone/Left Pyelonephritis --post op day 2--apprec urology--blood cultures on admission positive for E. coli--repeat blood cultures negtive--never needed
pressors--cont cefepime--apprec urology--had brief acute hypoxic resp failure requiring 6L as pulse ox dropped to 88%--now improved--off O2--passed stone, send for analysis
LANA-- due to sepsis/obstructed stone--improving but not at baseline yet--d/c ross--stop IVF
DVT Prophylaxis: SCDs
Code Status: Full
d/c
Anticipated Discharge: Today
Subjective/Interval History
-
Date of Service: January 05, 2024
pt ready for d/c
Objective Data
-
Vital Signs:
max temp for 24 hours
01/04/24
23:35
Temp 100.4 F H
Vital Signs
Temp Pulse Resp BP Pulse Ox
98.8 F 74 16 147/81 95
01/05/24 07:30 01/05/24 07:30 01/05/24 07:30 01/05/24 07:30 01/05/24 07:30
I&O
01/04/24 01/05/24 01/06/24
06:59 06:59 06:59
Intake Total 1725 / 1725 2059
Output Total 2625 / 2625 3025 / 3025
Balance -900 / -900 -965 / -965
Review of Systems
-
All other systems: Reviewed and negative
Physical Exam
-
General: Well Developed, Well Nourished and No Apparent Distress
HEENT: Normocephalic and Atraumatic
Respiratory: Clear to Auscultation; Negative Wheezes or Rhonchi
Cardiac: Regular Rhythm and S1/S2; Negative Murmur
GI: Soft, Nontender, Nondistended and Normal Bowel Sounds
Musculoskeletal: No Clubbing, No Cyanosis and No Edema
Neuro: Awake
[2024-01-05 11:50] VITALS: BP 136/74
--- NOTE | 2024-01-05 12:09 | CM ---
Pt for d/c today
Discussed IMM
Has ride home
Plan - home no needs
--- NOTE | 2024-01-05 14:03 | W.DCSUMMARY ---
Discharge Summary
Discharge Data
Date of Admission: 01/02/24
Date of Discharge: 01/05/24
-
Pending Results: Yes
Additional Pending Results:
Analysis of passed kidney stone.
Hospital Course
Primary care physician : Armin Byrd
Principal Discharge diagnosis : Escherichia coli severe sepsis with acute kidney injury
Chronic Discharge diagnosis : None
Hospital Course : Patient was a 68-year-old male who presented complaining of left flank pain, abdominal pain, nausea and vomiting, diaphoresis and chills for several days prior to admission. He stated that the symptoms woke him up from sleep
around 3 AM on Saturday prior to admission. He then had episodic symptoms since that time. Patient reported he had a prior instance of a kidney stone over 10 years prior to admission. When his symptoms did not improve, he presented to the emergency
department. Workup found him to have an obstructing renal stone. Patient was admitted.
Problem #1: Escherichia coli severe sepsis with acute kidney injury. Patient was seen in consultation by urology and taken directly to the operating room. He was then seen by myself in the recovery suite at which time he had shaking chills and
spiking fevers. Initial blood cultures were positive for Escherichia coli on admission. Repeat blood cultures were checked and were negative. The patient was transferred to the intensive care unit but did not not ever need blood pressure support.
He was started on cefepime. Based on sensitivities, he was transitioned to Keflex to complete a total of 14 days of antibiotic therapy. Patient did have an acute kidney injury with creatinine up to 2.8 at the time of admission. With IV fluids,
he has dropped to 1.3 which is in the normal range. Patient's Ross catheter was discontinued and he is voiding normally. He will need to follow-up with urology for stent removal and definitive stone management. While in the hospital, he did pass
a renal stone. Analysis of the stone is pending.
Patient is stable for discharge home at this time. If there are any questions regarding this dictation or his hospital stay, please not hesitate to call. Our office number is [phone].
Important imaging findings :
CT SCAN ABDOMEN/PELVIS IMPRESSION:
Approximate 5 mm calculus in the proximal left ureter with mild left renal collecting system dilatation. Mild bilateral perinephric stranding, left greater than right.
Small bilateral nonobstructing renal calculi.
Subcentimeter hepatic hypodensity, too small to characterize.
Two subcentimeter low-attenuation left renal lesions most likely representing cysts.
Colonic diverticulosis.
Prior lumbar spine surgery with prominent beam hardening artifact.
Procedure findings :
Pre Op Diagnosis: left uretrtal stone with sepsis jlius
Post Op Diagnosis: same
Procedure Performed: cysto left uretral stone manipulation jj stent rgp
Primary Surgeon: laron
Secondary Surgeons:
Anesthesia: general
Estimated Blood Loss: 1cc
Fluids: ns
Drains/Shunts:56 fr 24 cm jj 18 fr ross
Specimens/Cultures: urine
Doppler/Duplex/Angio (Y/N):
Complications: 0
Operative Findings: multilre stones and farooq pus left renal pelvis
Discharge Plan
-
Patient Disposition: Home (Routine Discharge)
Discharge Diagnosis/Procedures: Escherichia coli severe sepsis with acute kidney injury due to obstructing left ureteral stone and pyelonephritis, acute kidney injury
Condition: Good
Diet: As tolerated and Regular
Activity: As tolerated
Driving Restrictions: As prior to admission
Bathing Restrictions: None
Referrals:
Kulwinder Lees MD [Active] - (Call for appointment)
Armin Byrd PA-C [Family Provider] - in less than 1 week
Additional Discharge Medication Instructions: you have a stent Expect blood in urine left flank discomfort and frequency and urgency of urination Call Dr Lees [phone] when at home to set up next phase treatment
Prescriptions:
New
cephalexin 500 mg capsule
500 mg PO QID Qty: 44 0RF
acetaminophen 325 mg Tablet
650 mg PO Q4HPRN PRN (Reason: Mild Pain / Temp > 101) Qty: 0 0RF
ibuprofen 200 mg tablet
400 mg PO Q8H PRN (Reason: Pain) Qty: 1 0RF
Discontinued
prednisone 10 MG tablet
10 mg PO .TAPER Qty: 30 0RF
Rx Instructions:
Take 40mg daily x3days, 30mg daily x3days, 20mg daily x3days, 10mg daily x3days.
amlodipine 5 MG tablet
5 mg PO DAILY Qty: 30 0RF
hydromorphone 2 MG tablet
2 mg PO Q4HPRN PRN (Reason: severe pain) Qty: 15 0RF
docusate sodium 100 MG capsule
100 mg PO BID Qty: 60 0RF
cyclobenzaprine 10 mg tablet
10 mg PO TID PRN (Reason: Back pain/muscle spasm) Qty: 15 0RF
Discharge Orders:
Discharge Patient (As Directed); Ordered 01/05/24
Ordered By: Nadia Foster
Discharge Date and Time
Discharge Date/Time: 01/05/24 12:50
Print Language: CZECH
== END 2024-01-05 12:50 | disposition home or self-care (01) | DRG 853 ==
LOC: 3 WEST ACU 04:12
PROVIDERS: Emergency Medicine; Surgery; ADMITTING PHYSICIAN Hospitalist; ATTENDING PHYSICIAN Internal Medicine; CONSULT PHYSICIAN Specialist; EMERGENCY PHYSICIAN Emergency Medicine; FAMILY PHYSICIAN Physician Assistant Medical; OTHER PHYSICIAN Internal Medicine Critical Care Medicine
PROC: BT1F1ZZ Fluoroscopy of Left Kidney, Ureter and Bladder using Low Osmolar Contrast (ICD-10-PCS; 2024-01-02)
PROC: 0T778DZ Dilation of Left Ureter with Intraluminal Device, Via Natural or Artificial Opening Endoscopic (ICD-10-PCS; 2024-01-02)
DX: A41.51 Sepsis due to Escherichia coli [E. coli] (principal); J96.01 Acute respiratory failure with hypoxia; N13.6 Pyonephrosis; N17.9 Acute kidney failure, unspecified; E87.1 Hypo-osmolality and hyponatremia; E87.20 Acidosis, unspecified; R65.20 Severe sepsis without septic shock; E66.9 Obesity, unspecified; E86.0 Dehydration; D69.59 Other secondary thrombocytopenia; Z68.33 Body mass index [BMI] 33.0-33.9, adult
CPT/HCPCS: 74176; 74420; 76000; 80048; 80053; 81003; 81015; 82365; 83605; 83690; 83735; 84100; 85025; 85027; 87040; 87077; 87086; 87149; 87186; 87205; 93005; 96361; 96374; 96375; 99284; A4300; C2617

== ENCOUNTER 2024-01-30 06:25 | Day surgery (SDC) | payer MEDICARE, OTHER, SELFPAY ==
--- NOTE | 2024-01-24 11:01 | PTCARENOTE ---
Platelets 93 collected on 01/04/24; Cira at 's office was notified.
--- NOTE | 2024-01-24 14:48 | PTCARENOTE ---
Dr Llamas made aware of PLT's 93, stated to make surgeon aware, which was done prior.
[2024-01-30] VITALS (8 sets, daily range): BP systolic 118–146; BP diastolic 64–87; BMI 32.9
[2024-01-30 12:07] LABS: Urine Albumin Trace (Neg - Trace); Urine Bilirubin Negative (Negative); Urine Character Clear (Clear); Urine Color Yellow; Urine Glucose Negative (Negative); Urine Ketone Negative (Negative); Urine Leukocyte 2+ (Negative); Urine Nitrite Negative (Negative); Urine Occult Blood 4+ (Negative); Urine Urobilinogen Negative (Neg - 1+)
[2024-01-30 12:17] LABS: Urine Bacteria Few (Negative); Urine Mucus Few; Urine Red Blood Cell 26-30 /HPF (0-2)
[2024-01-30] MEDS: NORMOSOL-R 1000 IV (12:29)
[2024-02-04 10:59] LABS: Stone Analysis Mass 12 mg
== END 2024-01-30 16:57 | disposition home or self-care (01) ==
LOC: SDS 06:25
PROVIDERS: ATTENDING PHYSICIAN Specialist
DX: N13.2 Hydronephrosis with renal and ureteral calculous obstruction (principal); A41.89 Other specified sepsis
CPT/HCPCS: 52356; 74018; 76000; 81003; 81015; 82365; 87086; A4300; C1894; C2617; J1580

== ENCOUNTER → 2024-11-16 09:02 | Outpatient (REF) | payer MEDICARE, OTHER, SELFPAY | LOC: DHSLP 09:02 | PROVIDERS: ATTENDING PHYSICIAN Internal Medicine Critical Care Medicine; FAMILY PHYSICIAN Physician Assistant Medical | DX: G47.33 Obstructive sleep apnea (adult) (pediatric) (principal) | CPT/HCPCS: 95800 ==